=== PATIENT | female | born 1995 | race African-American/Black ===

== ENCOUNTER 2019-06-16 10:42 | Emergency (ER) | payer OTHER ==
[~2019-06-16] VITALS: Ht 157.5 cm; Wt 72.6 kg
[2019-06-16 12:15] LABS: HEMATOCRIT 39.8 % (37.0-47.0); HEMOGLOBIN 13.2 gm/dL (12.0-15.0); MCH 28.1 pg (26.0-34.0); MCHC 33.1 g/dL (28.0-37.0); MCV 84.9 fL (80.0-100.0); RBC 4.69 mil/uL (4.20-5.00); RDW 15.1 % (10.5-14.5); WBC 10.7 thou/uL (4.0-11.0)
[2019-06-16 12:35] LABS: CALCIUM 9.3 mg/dL (8.5-10.1); CREATININE 1.2 mg/dL (0.6-1.0); POTASSIUM 3.1 mmol/L (3.5-5.1)
[2019-06-16] MEDS ORDERED: NORCO 5-325 TA1 EAC1 PO (13:45)
[2019-06-16 13:50] VITALS: BP 115/81
== END 2019-06-16 13:55 | disposition home or self-care (01) ==
LOC: ER 10:42
PROVIDERS: Emergency Medicine Emergency Medical Services
DX: S09.93XA Unspecified injury of face, initial encounter (principal); R42 Dizziness and giddiness; M54.2 Cervicalgia; H53.8 Other visual disturbances; K08.89 Other specified disorders of teeth and supporting structures; F17.210 Nicotine dependence, cigarettes, uncomplicated; Y04.2XXA Assault by strike against or bumped into by another person, initial encounter; Y93.89 Activity, other specified; Y92.89 Other specified places as the place of occurrence of the external cause; Y99.8 Other external cause status